=== PATIENT | female | born 1990 | race Caucasian/White ===

== ENCOUNTER 2018-01-15 10:15 | Day surgery (SDC) | payer SELFPAY ==
[2017-12-24 13:11] VITALS: BMI 24.2
[2018-01-15 10:38] VITALS: BP 110/66; PULSE 68; RESP 16; TEMP 36.6; O2SAT 100; BMI 22.6
--- NOTE | 2018-01-15 12:10 | BRBX_PTH ---
PATIENT: KRISTINA BERGER LOC: [facility] U#:[id number] AGE/SX: 27/F ROOM: RE01/15/[address]: Dr. Jairo Liu MD : 1990 BED: DIS: 01/15/2018 SPEC #: [id number] RECD: 01/15/18 15:44 STATUS: MADDIE JUSTINA #: [id number] BIA: 01/15/18 12:[address]: Jairo Liu DEPT: SURGICAL PATHOLOGY RECD BY: Shakeel Puentes ENTERED: 01/18/18 08:46 SP TYPE: BREAST BX OTHR DR: No Primary Care Phys Tissues: Right breast, NOS Procedures: Surgery Specimen Level IV HEADER OPERATION: Excisional breast biopsy PRE-OP DIAGNOSIS: Right breast fibroadenoma TISSUE SUBMITTED: Right breast fibroadenoma MICROSCOPIC DIAGNOSIS Right breast fibroadenoma, excisional biopsy: Fibroadenoma. Negative for atypia or malignancy. SJ:fawn 01/19/18 COMMENT The lesion appears to be completely excised. Please make reference to previous specimen ([id number]) right breast tissue, core biopsy with diagnosis of fibroadenoma. Case has been reviewed in consultation with Dr. Granados who concurs with the above diagnosis. IDC:AM MICROSCOPIC DESCRIPTION Slides are reviewed. GROSS DESCRIPTION Received in fixative is one container labeled with the patient's name and designated right breast fibroadenoma. The specimen consists of a rubbery fragment of pink-white soft tissue measuring 4 x 3.5 x 2.8 cm. Sections reveal homogenous white cut surfaces without areas of cyst formation, necrosis or hemorrhage. [employer] sections are submitted in two cassettes. / AM:fawn 01/18/18 More sections are submitted in cassettes 3-6. / SJ:fawn 01/19/18 TC:1 CPT: 80534
[2018-01-15] MEDS: Cefazolin 2 GM in 0.9% Normal Saline 100 ML IV (13:02)
[2018-01-15] MEDS: Bupivacaine Mpf 0.5% 30 ML VIAL (13:28)
--- NOTE | 2018-01-15 13:33 | DCINST_ITS ---
Discharge Diet: No Restrictions Discharge Activity: May Not Drive - for 2-3 days or while taking narcotic pain meds. May shower in (days): 1 Lifting Restrictions: 10 pounds for 1 week. Call your doctor if your incision/area has: Continuous Slow Oozing, Sudden In creased Bleeding Call your doctor if you observe: Fever of 101 or Higher Suture Line Care: Avoid Pulling/Pushing, Avoid Pinching/Bending Remove Dressing in (days):: 1 - Remove bulky dressing tomorrow. May leave any opsite dressing for 3-4 days[address] Keep dressing in place until your follow-up appointment. Additional Dressing/Incision Instructions:: Remove bulky dressing tomorrow. May leave any opsite dressing for 3-4 days. Keep dressing in place until your follow-up appointment. Allergies/Adverse Reactions: Allergies No Known Allergies Allergy (Verified 01/15/18 10:38) Medications to take at Discharge Oxycodone HCl/Acetaminophen [Percocet 5/325] 1 - 2 tab PO Q4H PRN PRN 5 Days #30 tab 01/15/18 The following prescriptions were given: Oxycodone HCl/Acetaminophen [Percocet 5/325] 1 - 2 tab PO Q4H PRN PRN 5 Days #30 tab PRN Reason: Pain Orders to be completed after discharge: ,Urine Time Frame: 01/15/18, Location: Laboratory Primary Care Physician: Care Physician,No Primary [Primary Care Provider] -
--- NOTE | 2018-01-15 13:35 | OP.PCM_ITS ---
Problem List (1) Fibroadenoma of right breast Status: Acute Report of Operation Date of Procedure: 01/15/18 Pre-Operative Diagnosis: Fibroadenoma of right breast Post-Operative Diagnosis: Same Surgery/Procedure Performed:: Excision of fibroadenoma right breast Type of Anesthesia:: General Anesthesiologist: Thomas Diallo Estimated Blood Loss (mL): < 25 cc Description of Procedure: Patient was brought to the operating room placed in the supine position under excellent general anesthetic right breast was sterilely prepped and draped in usual fashion. Local was injected in the circumareolar area of the inner aspect of the nipple. Dissection was carried down fibroadenoma was identified I was able to excise a fibroadenoma without difficulty and sent it to pathology for permanent sectioning. I primarily used electrocautery to do this and obtain good hemostasis. When this was completed I injected local all around the wound. I brought the skin together with deep dermal stitches of 3-0 Vicryl. Steri- Strips are applied sterile dressings were applied Salazar wrap was applied and the patient tolerated the procedure well. - Admit VTE Documentation VTE Present on Admission: No VTE Mechan Device Prophylaxis: SCD's VTE Pharm Prophylaxis ordered?: No Reason prophylaxis not ordered:: Treatment Not Indicated
[2018-01-15 13:50] VITALS: BP 110/66; BP 96/55; PULSE 62; RESP 16; TEMP 36.7; O2SAT 97
[2018-01-15 14:00] VITALS: BP 110/66; BP 92/50; PULSE 59; RESP 16; O2SAT 100
[2018-01-15 14:15] VITALS: BP 103/64; BP 110/66; PULSE 73; RESP 16; O2SAT 100
[2018-01-15 14:30] VITALS: BP 110/66; BP 119/73; PULSE 68; RESP 16; TEMP 36.6; O2SAT 100
[2018-01-15 15:37] VITALS: BP 108/68; BP 110/66; PULSE 67; RESP 16; TEMP 36.6; O2SAT 100
== END 2018-01-15 15:37 | disposition home or self-care (01) ==
LOC: SDC 10:16 → AC 10:17
PROVIDERS: Referring Provider Surgery; Visit Provider Surgery
PROC: (CPT 19120; principal; 2018-01-15 11:55)
DX: D24.1 Benign neoplasm of right breast (principal)
CPT/HCPCS: 00400; 19120; 88305; J7120; J2405